=== PATIENT | male | born 1980 | race Caucasian/White ===

== ENCOUNTER 2018-04-20 21:05 | Emergency (ER) | payer SELFPAY ==
[~2018-04-20] VITALS: Ht 175.3 cm; Wt 79.4 kg
[2018-04-20 21:45] VITALS: BP 129/82
[2018-04-20] MEDS ORDERED: ATIVAN2 MG ORAL (21:48)
[2018-04-20] MEDS ORDERED: SERTRALINE HCL100 MG PO (21:48)
[2018-04-20 22:15] VITALS: BP 129/82
--- NOTE | 2018-04-20 22:25 | Emergency Room Report ---
History of Present Illness General Chief Complaint: Medication Refill Source: Patient Present Illness HPI This is a 38-year-old male with a history of anxiety. He said that he is out of his Zoloft and Ativan. He said he lives in [facility] and recently moved here last month. He said that he had a prescription for Ativan 2.5 mg and he is currently out for the last few days. Complaining of anxiety and wanting refill. He initially told me that he only takes the Ativan once or twice a week at the most. He denies suicidal thoughts or homicidal thought. Allergies: Uncoded Allergies: BEE (Allergy, Unknown, 04/20/18) Patient History Past Medical History: see triage record, old chart reviewed, psych hx Past Surgical History: none Pertinent Family History: none Social History: Denies: smoking Immunizations: other Reviewed Nursing Documentation: PMH: Agreed; PSxH: Agreed Nursing Documentation-PMH Hx Asthma: Yes History Of Psychiatric Problem: Yes - DEPRESSION ,ANXIETY Review of Systems Eye: Denies: eye pain, blurred vision ENT: Denies: ear pain, nose congestion, throat swelling Respiratory: Denies: cough, shortness of breath Cardiovascular: Denies: chest pain, palpitations Gastrointestinal: Denies: abdominal pain, diarrhea, nausea, vomiting Musculoskeletal: Denies: back pain, joint pain Skin: Denies: rash Neurological: Denies: headache, numbness Endocrine: Denies: increased thirst, increased urine Hematologic/Lymphatic: Denies: easy bruising All Other Systems: negative except mentioned in HPI Physical Exam Vital Signs Date Time Temp Pulse Resp B/P (MAP) Pulse Ox O2 Delivery O2 Flow Rate FiO2 04/20/18 21:39 97.6 102 16 129/82 94 Room Air 97.5 vitals normal Sp02 EP Interpretation: reviewed, normal General Appearance: well appearing, no apparent distress, alert Head: normocephalic, atraumatic Eyes: bilateral eye PERRL, bilateral eye EOMI ENT: hearing grossly normal, normal pharynx Neck: full range of motion, supple, no meningismus Respiratory: chest non-tender, lungs clear, normal breath sounds Cardiovascular #1: regular rate, rhythm, no murmur Gastrointestinal: normal bowel sounds, non tender, no mass, no organomegaly, no bruit, non-distended Musculoskeletal: back normal, gait/station normal, normal range of motion Psychiatric: mood/affect normal Skin: warm/dry Medical Decision Making Diagnostic Impression: Primary Impression: Encounter for medication refill Additional Impressions: Drug-seeking behavior Benzodiazepine dependence ER Course Patient presents with refill for his medication particularly Ativan. I do not believe his story of needing only one to 2 tablets of Ativan a week. Explained to him that his stretcher heavy dose to begin with and only getting once or twice a week. When I told patient that I will not refill his controlled substance medication and can try something else, he said that he has prescription for it. He showed me the bottle of Ativan. He filled it on 2017. It was 2.5 mg #50. When I told the patient that if he is only taking one or 2 tablets a week then he should have plenty leftover. He then claimed that his medicines were stolen and he lost some. When I said that one with someone stole the medicine and leave the bottle, he got mad and got up and left without his paperwork. He showed no evidence of withdrawal symptoms. Last Vital Signs Date Time Temp Pulse Resp B/P (MAP) Pulse Ox O2 Delivery O2 Flow Rate FiO2 04/20/18 21:39 97.6 102 16 129/82 94 Room Air 97.5 Status: unchanged Disposition: HOME, SELF-CARE Condition: Stable KHADAR DENNIS M.D. Apr 20, 2018 22:25
== END 2018-04-20 22:15 | disposition home or self-care (01) ==
LOC: EMR 22:02
DX: F41.9 Anxiety disorder, unspecified (principal); Z76.5 Malingerer [conscious simulation]; F13.20 Sedative, hypnotic or anxiolytic dependence, uncomplicated; Z76.0 Encounter for issue of repeat prescription; F32.9 Major depressive disorder, single episode, unspecified; Z91.030 Bee allergy status
CPT/HCPCS: 99282